=== PATIENT | male | born 1955 | race Caucasian/White ===

== ENCOUNTER → 2018-12-07 | Outpatient (CLI) | payer OTHER ==
[~2018-12-07] MED LIST: ASPIRIN EC81 M1 PO; COUMADIN 2 MG TA2 M1 PO; COUMADIN 5 MG TA5 M1 PO; COUMADIN PO; EFFEXOR XR150 MG PO; KEFLEX500 MG PO; NORCO 5-325 TA1 EACH PO
--- NOTE | 2018-12-07 15:01 | 2DMMODE ---
[place] [address] 2 D/M-MODE ECHOCARDIOGRAM Name: BERNICE ANAYA Room: [facility]#: [id number] Admission: 12/07/18 Attend Phys: Pepe Huerta, Discharge: Date of : 51 Date of Service: 12/07/18 1501 Report #: [id number] THIS REPORT FOR: //name// APPROVED REPORT Study performed: 12/07/2018 11:06:36 EXAM: Comprehensive 2D, Doppler, and color-flow Echocardiogram Patient Location: Out-Patient BSA: 1.73 HR: 64 bpm BP: 120/72 mmHg Other Information Study Quality: Good Indications Aortic Valve Disease 2D Dimensions IVSd: 12.93 (7-11mm) LVOT Diam: 21.32 (18-24mm) LVDd: 37.89 mm PWd: 11.15 (7-11mm) Ascending Ao: 29.80 (22-36mm) LVDs: 24.05 (25-40mm) Aortic Root: 32.52 mm Volumes Left Atrial Volume (Systole) LA ESV Index: 14.00 mL/m2 Aortic Valve AoV Peak Rafat.: 1.39 m/s AO Peak Gr.: 7.72 mmHg LVOT Max P.76 mmHg AO Mean Gr.: 4.25 mmHg LVOT Mean P.16 mmHg LVOT Max V: 0.83 m/s AO V2 VTI: 24.57 cm LVOT Mean V: 0.48 m/s ISHAAN (VTI): 2.59 cm2 LVOT V1 VTI: 17.82 cm Mitral Valve E/A Ratio: 0.55 MV Decel. Time: 439.25 ms MV E Max Rafat.: 0.33 m/s MV PHT: 127.38 ms MVA (PHT): 1.73 [place] [address] 2 D/M-MODE ECHOCARDIOGRAM Name: BERNICE ANAYA Room: [facility]#: [id number] Admission: 12/07/18 Attend Phys: Pepe Huerta, Discharge: Date of : 51 Date of Service: 12/07/18 1501 Report #: [id number] TDI E/Lateral E': 3.67 E/Medial E': 4.13 Medial E' Rafat.: 0.08 m/s Lateral E' Rafat.: 0.09 m/s Pulmonary Valve PV Peak Rafat.: 0.80 m/s PV Peak Gr.: 2.56 mmHg Tricuspid Valve RAP Estimate: 5.00 mmHg TR Peak Gr.: 23.11 mmHg RVSP: 28.11 mmHg PA Pressure: 28.11 mmHg Left Ventricle The left ventricle is normal size. There is normal LV segmental wall motion. There is normal left ventricular wall thickness. Left ventricular systolic function is normal. The left ventricular ejection fraction is within the normal range. LVEF is 55-60%. Grade I - abnormal relaxation pattern. Right Ventricle The right ventricle is normal size. The right ventricular systolic function is normal. Atria The left atrium size is normal. The right atrium size is normal. Aortic Valve Mechanical aortic valve is present. Trace aortic regurgitation. There is no aortic valvular stenosis. Mitral Valve The mitral valve is normal in structure. Mild mitral regurgitation. No evidence of mitral valve stenosis. Tricuspid Valve The tricuspid valve is normal in structure. Mild tricuspid regurgitation. Pulmonic Valve The pulmonary valve is normal in structure. There is no pulmonic valvular regurgitation[place] [address] 2 D/M-MODE ECHOCARDIOGRAM Name: BERNICE ANAYA Room: [facility]#: [id number] Admission: 12/07/18 Attend Phys: Pepe Hureta, Discharge: Date of : 51 Date of Service: 12/07/18 1501 Report #: [id number] The aortic root is normal in size. IVC is normal in size and collapses >50% with inspiration. Pericardium There is no pericardial effusion. <Conclusion> The left ventricle is normal size. There is normal left ventricular wall thickness. Left ventricular systolic function is normal. The left ventricular ejection fraction is within the normal range. LVEF is 55-60%. Grade I - abnormal relaxation pattern. The right ventricle is normal size. The left atrium size is normal. Trace aortic regurgitation. There is no aortic valvular stenosis. The mitral valve is normal in structure. Mild mitral regurgitation. The tricuspid valve is normal in structure. Mild tricuspid regurgitation. IVC is normal in size and collapses >50% with inspiration. There is no pericardial effusion. There is normal LV segmental wall motion. Mechanical aortic valve is present. <ELECTRONICALLY SIGNED> By: Jose Weeks MD, FACC 12/07/18 1501 1501 1501 Jose Weeks MD, FACC /INF
== END ==
LOC: M.CRD 10:55
DX: I08.1 Rheumatic disorders of both mitral and tricuspid valves (principal); Z95.2 Presence of prosthetic heart valve

== ENCOUNTER 2019-04-26 06:11 | Inpatient (IN) | payer OTHER ==
[2019-04-15 09:09] LABS: ABSOLUTE LYMPHOCYTES 1.3 thou/uL (0.8-5.3); ABSOLUTE MONOCYTES 0.4 thou/uL (0.0-1.2); ABSOLUTE NEUTROPHILS 3.2 thou/uL (1.6-8.1); BASOPHILS 0.7 %; EOSINOPHILS 0.9 %; HEMATOCRIT 44.9 % (42.0-52.0); HEMOGLOBIN 15.4 gm/dL (14.0-18.0); LYMPHOCYTES 26.6 %; MCHC 34.3 g/dL (28.0-37.0); MCV 93.3 fL (80.0-100.0); MONOCYTES 7.6 %; MPV 8.4 fl. (7.2-11.1); NUCLEATED RBCS 0 /100WBC; PLATELET COUNT* 185 thou/uL (150-400); POLYS 64.2 %; RBC 4.81 mil/uL (4.50-6.00); RDW-CV 14.3 % (10.5-14.5)
[2019-04-15 09:19] LABS: APTT 40.8 Seconds (25.0-31.3); INR 3.3
[2019-04-15 09:34] LABS: ALBUMIN 3.9 g/dL (3.4-5.0); CALCIUM 8.6 mg/dL (8.5-10.1); POTASSIUM 3.7 mmol/L (3.5-5.1); TOTAL BILIRUBIN 0.7 mg/dL (<0.1-1.0); TOTAL PROTEIN 7.3 g/dL (6.4-8.2)
[2019-04-15 10:19] LABS: ESR (SEDRATE) 5 mm/hr (0-20)
--- NOTE | 2019-04-15 16:16 | EKG ---
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1955 Requested By: Rick Hatch Order Number: [id number] Reading MD: Pepe Huerta Measurements Intervals [place] Rate: 74 P: 91 MD: 193 QRS: 33 QRSD: 116 T: 213 QT: 391 QTc: 434 Interpretive Statements Sinus rhythm Ventricular premature complex Cannot rule out anteroseptal infarct, old Incomplete left bundle branch block Anterior Q waves, possibly due to ILBBB No previous ECG available for comparison Electronically Signed On 04-15-2019 16:16:39 CDT by Pepe Huerta [email or web address] <ELECTRONICALLY SIGNED> By: Pepe Huerta MD, [facility] 04/15/19 1616 0 0 Pepe Huerta MD, FACC /EPI
[~2019-04-26] VITALS: Ht 167.6 cm; Wt 63.5 kg
[~2019-04-26 06:11] MED LIST changes: +LIPITOR10 MG PO; +PERCOCET 7.5-31 EACH PO
[2019-04-26 07:51] VITALS: BP 128/64
[2019-04-26 12:02] LABS: PROTIME 10.1 Seconds (9.20-11.50)
--- NOTE | 2019-04-26 12:04 | OP ---
[address] [address] OPERATIVE REPORT Name: BERNICE ANAYA Room: [address] IN .R.#: [id number] Admission: 04/26/19 Attend Phys: Mitzi Wilkinson Discharge: Date of : 51 Report #: [id number] THIS REPORT FOR: //name// CC: Physician staff CARI Romero DATE OF SERVICE: 04/26/2019 PREOPERATIVE DIAGNOSIS: Advanced degenerative joint disease, right knee. POSTOPERATIVE DIAGNOSIS: Advanced degenerative joint disease, right knee. PROCEDURE: Right total knee arthroplasty. SURGEON: Rick Hatch DO INVESTMENT RECOVERY TECHNICIAN: Jose R العلي DO ESTIMATED BLOOD LOSS: 100 mL TOURNIQUET TIME: Approximately 1 hour. ANTIBIOTICS: Ancef 1 gram IV preoperatively. COMPLICATIONS: None. DRAINS: None. SPECIMENS REMOVED: None. ORTHOPEDIC IMPLANTS: Tiff total knee arthroplasty system. 1. Size 7 cruciate-retaining femur. 2. Size F tibial baseplate. 3. 32 mm 3 peg patella. 4. A 14 mm medial congruent spacer. 5. Two bags of Palacos bone cement plain. CONDITION OF PATIENT: Stable to PACU. INDICATIONS: The patient is a pleasant 64-year-old male seen in my clinic regarding chronic history of right knee pain. He has unfortunately failed extensive conservative treatment. X-rays were consistent with end-stage degenerative joint disease with varus deformity. Due to failed conservative treatment and the fact pain was interfering with his quality of life and activities of daily living. I discussed the potential benefit of right total [facility] [address] [place] [address] OPERATIVE REPORT Name: BERNICE ANAYA Room: [address] IN .R.#: [id number] Admission: 04/26/19 Attend Phys: Mitzi Wilkinson Discharge: Date of : 51 Report #: [id number] knee arthroplasty. I discussed procedure, risks, benefits, complications and indications in detail with him. Risks discussed include but not limited to infection, neurovascular injury, hardware failure, fracture, continued or worsening pain, arthrofibrosis, need for further surgery, DVT, PE, and/or anesthesia complications. He did express understanding and wished to proceed with surgery. DESCRIPTION OF PROCEDURE: After consent was obtained, the patient was taken to the operative suite and placed in supine position on operating room table. He was given the benefit of general anesthesia. A well-padded tourniquet was placed on the right upper thigh. Right leg was sterilely prepped and draped in the usual fashion. Preoperative timeout was obtained to confirm the correct patient, procedure and operative site. Surgery began with standard anterior knee midline incision after inflation of the tourniquet to 300 mmHg. Sharp dissection was taken down to the level of the capsule. A new knife was used and a medial parapatellar arthrotomy was performed. He had a normal appearing joint effusion. The patella was everted. Hohmann retractors were placed at all times to protect collateral ligaments. He had severely eburnated bone throughout all 3 compartments with osteophytes throughout. Femoral drill was used to open the femoral canal. T-handle and intramedullary new were placed measuring 5-degree valgus cut. The distal femoral cut was made through the captured block. AP sizer was placed on the distal femur. This measured size 7. Two pilot teacher holes were drilled in 3 degrees of external rotation. The size 7, 4-in-1 cutting block was then pinned in place and the anterior and posterior condylar cuts as well as chamfer cuts were then made. Posterior osteophytes were removed using a curved osteotome and rongeur. The proximal tibia was then exposed. External tibial guide was utilized, measuring 10 mm cut off the high lateral side. The proximal tibial cut was made through the captured block. Knee was taken through extension, 10 block was used to ensure adequate resection. Knee was again flexed. The proximal tibia measured a size F. The trial was pinned in place appropriate rotation based off the medial third of the tibial tubercle and the middle of talus. Trial femur was placed. A size 12 spacer was placed. Knee was taken through range of motion and he had full flexion and extension with stable varus and valgus testing with equal flexion and extension gaps throughout. The patella was everted. Posterior patellar cut was made using freehand technique, this measured size 32. Three peg holes were drilled, size 32 button was placed. Knee was taken through range of motion and the patella did track well. At this time, trial femur and spacer removed. The proximal tibia was opened with a drill and punch. All trial components were then removed. The knee was thoroughly irrigated with pulsatile lavage and dried with clean lap sponge. The final components were opened, cement was mixed, placed on the components and exposed bone. The components were then impacted into place. Excess cement was removed. A size 12 trial spacer was placed. Knee was taken through extension. [address] [address] OPERATIVE REPORT Name: BERNICE ANAYA Room: [address] [facility] IN .R.#: [id number] Admission: 04/26/19 Attend Phys: Kartik EvanMitzi Stark Discharge: Date of : 51 Report #: [id number] Axial compression was applied until the cement hardened. Once the cement hardened, trial reduction was performed and a final size 14 spacer was chosen. This was placed on a clean tibial tray, locked in place. Audible click was heard. The knee was taken through a final range of motion. He had full flexion and extension with stable varus and valgus testing and equal flexion and extension gaps throughout with good patellar tracking. Tourniquet was deflated. Hemostasis was achieved with electrocautery and direct pressure. Ortho cocktail was injected. Capsular tissue was closed with a running Quill suture. Subcutaneous tissue was closed with 2-0 Vicryl in an inverted interrupted fashion followed by running Monocryl stitch on the skin. This was covered with Dermabond, which was allowed to dry, Mepilex silver dressing and sterile dressing. He did tolerate the procedure well without complications. He was taken to recovery room in stable condition. All needle and sponge counts were correct x 2 at the end of the procedure. <ELECTRONICALLY SIGNED> By: Rick Hatch DO 04/26/19 1204 0930 [id number] Hatch DO /nt
[2019-04-26 15:46] VITALS: BP 134/78
[2019-04-26 16:40] VITALS: BP 135/86
--- NOTE | 2019-04-26 17:37 | NUR ---
PT ARRIVED TO FLOOR FROM PACU ABOUT 1110. VITALS STABLE. DRESSING C/D/I. THIGH HIGH JANNA ON L LEG, FOOT PUMPS AND POLAR PACK IN PLACE. CPM IN ROOM, PT HAS ONE THAT WAS DELIVERED AT HIS HOUSE WELL. HAS GOT UP WITH THERAPY X1 USING GAITBELT AND WALKER. ON 3LOX AND PULSE OX. IV PATENT, INFUSING. RATING PAIN 1-2/10 AND HAS NOT WANTED PAIN MEDS DURING SHIFT. PT HAS HAD FOOT DROP ON R FOOT SINCE ARRIVAL TO FLOOR, PT STATES THAT THIS IS NEW. PT IS ABLE TO WIGGLE TOES AND MOVE LEG, NO DORSIFEXION. DR SUTTON HAS BEEN NOTIFED AND WILL SEE HIM IN THE MORNING. FALL PRECAUTIONS IN PLACE. CALL LIGHT WITHIN REACH. WILL CONTINUE TO MONITOR.
[2019-04-26 20:20] VITALS: BP 156/73
[2019-04-26 23:23] VITALS: BP 144/80
[2019-04-27 05:07] LABS: HEMATOCRIT 34.8 % (42.0-52.0); HEMOGLOBIN 11.9 gm/dL (14.0-18.0)
--- NOTE | 2019-04-27 05:12 | NUR ---
ASSUMED CARE OF PT 04/26/19 AT APPROX 1930, PT REMAINED A&OX4 THROUGHOUT NIGHT, ASSESSMENTS AND HOURLY ROUNDINGS COMPLETED, CPM ACTIVITY COMPLETED, POLAR CARE MAINTAINED, PAIN MEDS REQUESTED BY PT AND GIVEN ORDERED. WILL CONTINUE TO MONITOR.
[2019-04-27 05:15] LABS: PROTIME 10.2 Seconds (9.20-11.50)
[2019-04-27 05:30] VITALS: BP 132/75
[2019-04-27 08:10] VITALS: BP 158/88
[2019-04-27] MEDS ORDERED: NORCO 10-325 T1 EACH PO (10:11)
[2019-04-27] MEDS ORDERED: NORCO 5-325 TA1 EAC1 PO (11:46)
[2019-04-27] MEDS ORDERED: TRAMADOL 50 MG50 MG PO (11:48)
[2019-04-27 11:49] VITALS: BP 158/88
[2019-04-27 14:51] VITALS: BP 158/88
--- NOTE | 2019-04-27 15:44 | NUR ---
PATIENT UP WITH SBA WITH WALKER AND GAIT BELT. PATIENT PARTICIPATED IN THERAPYS THIS SHIFT PRIOR TO DC. PRN TRAMADOL AND VICODIN GIVEN FOR PAIN. RIGHT KNEE DRESSING IN PLACE, JANNA GILES. IV DC'D. VOIDING PER URINAL. PATIENT VERBALIZES UNDERSTANDING OF PAPERWORK AND SCRIPTS. PATIENT TAKEN OUT VIA WHEELCHAIR WITH ALL BELONGINGS.
--- NOTE | 2019-04-27 15:48 | NUR ---
SW met with pt prior to pt dc to complete assessment and discuss safe dc planning. SW discussed OP therapy recommendation and options; pt unable to follow through with OP due to transportation needs; pt preference for HH, SW arranged HH through [facility] services. Pt needed RW for home, [facility] not in network with [employer], pt insurance so SW faxed referral and order to [facility] and RW to be delivered to pt home zachary as pt son was on a schedule for pt son to be able to work on time; so pt needed to dc from the hospital and would be unable to wait on walker to be delivered prior to pt dc. No other dc needs expressed.
--- NOTE | 2019-04-27 17:24 | NUR ---
PT. POLITELY DECLINED O.T. ROCÍO STATING HE ALREADY HAD BEEN LIVING IN PAIN AND KNOWS HOW TO TAKE CARE OF HIMSELF AT HOME. THUS, O.T. UNABLE TO COMPETE O.T. ROCÍO AND WILL DISMISS PT. FROM [facility]T. [facility].
== END 2019-04-27 15:46 | disposition home health service (06) | DRG 470 ==
LOC: M.SUR 06:11 → M.PRE 07:36 → EDSTATUS 09:04 → M.SUR 09:06 → M.TBA 09:48 → M.3W 09:48 → M.SUR 11:57 → M.3W 04-27 15:46
PROVIDERS: Internal Medicine; Orthopaedic Surgery; ADMIT Internal Medicine
PROC: 0SRC0J9 Replacement of Right Knee Joint with Synthetic Substitute, Cemented, Open Approach (ICD-10-PCS; principal; 2019-04-26)
DX: M17.11 Unilateral primary osteoarthritis, right knee (principal); E78.5 Hyperlipidemia, unspecified; Z88.5 Allergy status to narcotic agent; Z79.01 Long term (current) use of anticoagulants; Z79.899 Other long term (current) drug therapy

== ENCOUNTER → 2019-09-21 | Outpatient (CLI) | payer OTHER ==
[~2019-09-21] MED LIST changes: +NORCO 10-325 T1 EACH PO; +NORCO 5-325 TA1 EAC1 PO; +TRAMADOL 50 MG50 MG PO
--- NOTE | 2019-09-21 16:49 | EXE ---
[place] [address] STRESS ECHOCARDIOGRAM Name: BERNICE ANAYA Room: [facility]#: [id number] Admission: 09/21/19 Attend Phys: Pepe Huerta, Discharge: Date of : 51 Date of Service: 09/21/19 1648 Report #: [id number] THIS REPORT FOR: cc: Allan Daugherty MD, Todd E. MD Liston, Michael J. MD [facility] ~ APPROVED REPORT Study performed: 09/21/2019 15:27:17 Exam: Stress Echocardiogram Indication: Dyspnea Patient Location: Out-Patient Stress Nurse: Cristine Pedraza RN Supervising Physician: Pepe Huerta MD Ht: 5 ft 6 in HR: 71 bpm BP: 140/89 mmHg Medical History Medical History: Prosthetic Aortic Valve, AAA ,Carotid disease Cardiac Risk Factors: Hyperlipidemia, FHX of CAD Procedure The patient underwent an Exercise Stress Test using the Will Protocol. Blood pressure, heart rate, and EKG were monitored. An Echocardiogram was performed by deburring technician in four stages in quad fashion. At peak stress, four selected images were obtained and placed side by side with resting images for comparison. Stress Test Details Stress Test: Exercise stress testing was performed using a Will protocol. HR Resting HR: 71 bpm Max Heart Rate (APMHR): 154 bpm Max HR Achieved: 145 bpm Target HR (85% APMHR): 130 bpm % of APMHR: 94 Recovery HR: 74 bpm HR response to stress: Normal HR response to stress BP Resting BP: 140/89 mmHg Max BP: 199/93 [place] [address] STRESS ECHOCARDIOGRAM Name: HÉCTORBERNICE Abdias Room: [facility]#: [id number] Admission: 09/21/19 Attend Phys: Pepe Huerta, Discharge: Date of : 51 Date of Service: 09/21/19 1648 Report #: [id number] Recovery BP: 168/94 mmHg BP response to stress: Normal blood pressure response to stress. ECG Resting ECG: Sinus Rhythm, incomplete LBBB Stress ECG: Sinus Rhythm, LBBB Arrhythmia: None Recovery ECG: Sinus Rhythm, LBBB Recovery Arrhythmia: None Clinical Reason for Termination: Completed protocol Exercise duration: 7 min 07 sec Highest Stage Achieved: Stage 3: 3.4 mph at 14% grade. Exercise capacity: 8.76 METs The patient exhibited reasonable exercise tolerance. He had no significant cardiac symptoms with the exception of dyspnea. Target heart rate was achieved. Stress ECG Conclusion The baseline 12-lead EKG shows sinus rhythm with incomplete left bundle-branch block. EKGs obtained during and post exercise showed sinus rhythm with left bundle-branch block. There were no stress-induced arrhythmias. Pre-Stress Echo The resting Echocardiogram showed normal left ventricular contractility with an estimated Ejection Fraction of about 55-60%. Post-Stress Echo The stress Echocardiogram showed abnormal left ventricular contractility with an estimated Ejection Fraction of about 55-60%. There appears to be significant left ventricular dyssynergy post exercise stress. Additionally there appears to be increased hypokinesis of the anteroseptal wall and possibly the basal inferior wall. Clinical With exercise the patient had dyspnea without sigrid chest pain. Conclusion Clinical Response: Equivocal Exercise Capacity: Average Stress ECG Response: Indeterminant Stress Echo Images: [place] [address] STRESS ECHOCARDIOGRAM Name: BERNICE ANAYA Room: [facility]#: [id number] Admission: 09/21/19 Attend Phys: Pepe Huerta, Discharge: Date of : 51 Date of Service: 09/21/19 1648 Report #: [id number] Stress echo images suggest possibility of ischemia and the anterior wall as well as possibly basal inferior wall. Global LV systolic function is maintained. This is a moderate risk study. Consider alternate stress modality versus invasive evaluation as clinically indicated. Other Information Study Quality: Good <Conclusion> Stress echo images suggest possibility of ischemia and the anterior wall as well as possibly basal inferior wall. Global LV systolic function is maintained. This is a moderate risk study. Consider alternate stress modality versus invasive evaluation as clinically indicated. <ELECTRONICALLY SIGNED> By: Pepe Huerta MD, FACC 09/21/19 1648 47 47 Pepe Huerta MD, [facility] /INF
== END ==
LOC: M.CRD 14:49
DX: R06.09 Other forms of dyspnea (principal)

== ENCOUNTER → 2019-09-28 | Outpatient (CLI) | payer OTHER ==
[~2019-09-28] VITALS: Ht 167.6 cm; Wt 65.8 kg
[2019-09-28 12:48] LABS: HEMATOCRIT 43.9 % (42.0-52.0); HEMOGLOBIN 15.2 gm/dL (14.0-18.0); MCH 31.7 pg (26.0-34.0); MCHC 34.5 g/dL (28.0-37.0); MCV 91.8 fL (80.0-100.0); MPV 8.5 fl. (7.2-11.1); RBC 4.78 mil/uL (4.50-6.00); RDW-CV 13.9 % (10.5-14.5); WBC 4.3 thou/uL (4.0-11.0)
[2019-09-28 12:52] VITALS: BP 141/85
[2019-09-28 12:59] LABS: ANION GAP 3 mmol/L (7-16); APTT 25.4 Seconds (25.0-31.3); BUN 17 mg/dL (7-18); CALCIUM 8.2 mg/dL (8.5-10.1); CHLORIDE 103 mmol/L (98-107); CO2 30 mmol/L (21-32); CREATININE 0.9 mg/dL (0.6-1.3); GLUCOSE 95 mg/dL (70-99); POTASSIUM 3.8 mmol/L (3.5-5.1); PROTIME 10.1 Seconds (9.20-11.50); SODIUM 136 mmol/L (136-145)
[2019-09-28 13:03] LABS: ALBUMIN 3.8 g/dL (3.4-5.0); ALKALINE PHOSPHATASE 93 U/L (46-116); CHOLESTEROL 170 mg/dL (<200); HDL CHOLESTEROL 55 mg/dL (>40); LDL CHOLESTEROL 93 mg/dL (<100); SGOT 27 U/L (15-37); SGPT 26 U/L (30-65); TC:HDL 3.1 Ratio (Not establshd); TOTAL BILIRUBIN 0.5 mg/dL (<0.1-1.0); TOTAL PROTEIN 7.2 g/dL (6.4-8.2); TRIGLYCERIDE 113 mg/dL (<150); VLDL 23 mg/dL (<40)
[2019-09-28 13:04] LABS: SERUM ASSESSMENT Clear
[2019-09-28 15:16] VITALS: BP 147/85
--- NOTE | 2019-09-28 16:34 | EKG ---
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: : 1955 Requested By: Pepe Huerta Order Number: [id number] Michelle MD: Jose Weeks Measurements Intervals [place] Rate: 64 P: 95 CT: 191 QRS: -20 QRSD: 116 T: 98 QT: 443 QTc: 457 Interpretive Statements Sinus rhythm Incomplete left bundle branch block Compared to ECG 04/15/2019 09:11:07 Ventricular premature complex(es) no longer present Electronically Signed On 09-28-2019 16:33:39 CDT by Jose Weeks [email or web address] <ELECTRONICALLY SIGNED> By: Jose Weeks MD, FAC 09/28/19 1633 1252 1252 Jose Weeks MD, [facility] /EPI
--- NOTE | 2019-09-30 11:19 | CARD ---
[address] [address] CARDIAC CATH REPORT Name: BERNICE ANAYA Room: [facility]#: [id number] Admission: 09/28/19 Attend Phys: Pepe Huerta MD Discharge: Date of : 51 Report #: [id number] THIS REPORT FOR: //name// cc: Allan Daugherty MD, Todd E. MD ~ THIS REPORT FOR: //name// APPROVED REPORT Study performed: 09/28/2019 13:15:31 Patient Details The patient is a 64 year-old male Event Personnel Esdras Jernigan RTR Monitor, Kelly Linda RN RN, Aliyah Moralez RTR ScrubDeanna Michael Private Inquiry Agent Procedures Performed Coronary Angiography Only Chris WARE w/ Jerome Admission/Lab Medications/Medications given during procedure Midazolam (Versed) IV 2 mg, Fentanyl IV 50 mcg Procedure Narrative The patient was brought electively to the Cardiac Catheterization Laboratory and was prepped and draped in a sterile manner. The right femoral was infiltrated with 1% Lidocaine subcutaneous anesthesia. A 6F Rhome sheath was inserted into the right femoral artery. Coronary angiography was performed using coronary diagnostic catheters. The right coronary system was accessed and visualized with a 6F JR4 catheter. The left coronary system was accessed and visualized with a 6F JL4 catheter. Pre-demployment femoral angiogram was performed . Closure device was deployed with a 6 Fr MynxGrip. The patient tolerated the procedure well and there were no complications associated with the procedure. There was no hematoma. Coronaries only visualized. Intraoperative Conscious Sedation Sedation start time: 14:24 Case end Time: 14:40 Fentanyl 50 mcg Versed 2 mg Fluoro Time: 2.4 [place] [address] CARDIAC CATH REPORT Name: BERNICE ANAYA Room: [facility]#: [id number] Admission: 09/28/19 Attend Phys: Pepe Huerta MD Discharge: Date of : 51 Report #: [id number] Dose: DAP 91458 cGycm2 675 mGy Contrast Type and Amount: Visipaque 60 ml Diagnostic Cath Left Main The left main coronary artery is minimally plaqued in its midportion. LAD Minimal, 10%, plaquing in the proximal and mid vessel. Diagonal 1 The first diagonal branch is normal. Circumflex The circumflex coronary artery is normal. OM1 The first obtuse marginal is a large branched vessel that is normal. OM2 A small second obtuse marginal branch is normal. Right Coronary The right coronary artery is normal. R PDA A small PDA is normal. Left Ventriculography Left Ventriculography was not performed. Hemodynamics The aortic pressure is 139/76 mmHg with a mean of 100 mmHg. Conclusion 1. Minimal coronary artery disease as outlined above. Recommendations 1. Continue medical management and risk factor modification. <ELECTRONICALLY SIGNED> By: Pepe Huerta MD, FACC 09/30/19 1118 1118 [id number] Huerta MD, FACC /INF
== END | disposition home or self-care (01) ==
LOC: M.CL 11:42
PROVIDERS: Internal Medicine Cardiovascular Disease
DX: I25.10 Atherosclerotic heart disease of native coronary artery without angina pectoris (principal); E78.5 Hyperlipidemia, unspecified; Z98.890 Other specified postprocedural states; Z79.01 Long term (current) use of anticoagulants; Z95.2 Presence of prosthetic heart valve; Z79.899 Other long term (current) drug therapy; Z79.82 Long term (current) use of aspirin; Z88.8 Allergy status to other drugs, medicaments and biological substances